=== PATIENT | female | born 1945 | race Caucasian/White ===

== ENCOUNTER 2020-06-29 09:51 | Day surgery (SDC) | payer OTHER ==
[2020-06-23 14:19] LABS: Absolute Lymphocytes (CBC) 2.7 K/uL (0.7-4.9); Basophils % 0.7 % (0-1.3); Hematocrit 37.6 % (36.0-45.0); Lymphocytes % 35.9 % (15.3-44.8); RBC Red Blood Cell Count 3.91 M/uL (3.86-4.86)
[2020-06-23 14:41] LABS: Urine Appearance CLOUDY; Urine Bilirubin NEGATIVE (NEG); Urine Color YELLOW; Urine Glucose NEGATIVE (NEG); Urine Specific Gravity 1.015 (1.005-1.030)
[2020-06-23 14:42] LABS: Urine Blood NEGATIVE (NEG); Urine Protein NEGATIVE (NEG); Urine Urobilinogen 0.2 mg/dL (0.2-1.0); Urine pH 7.5 (5.0-7.0)
[2020-06-23 14:46] LABS: Potassium 3.9 mmol/L (3.5-5.1)
[2020-06-23 15:34] LABS: Urine Microscopic Reflex ORDER UMIC
[2020-06-23 15:55] LABS: Urine Amorphous Sediment 4+ /HPF (NONE SEEN); Urine Bacteria <20 /HPF (<20); Urine RBC <5 /HPF (NONE SEEN)
[2020-06-23 17:27] LABS: Protime INR 0.91
[2020-06-29] MEDS ORDERED: Ringers Lactate 1,000 ML IV ONE ×3 (11:58→16:32)
[2020-06-29] MEDS ORDERED: MIDAZOLAM HCL 2 MG/2 ML INJ ONE (12:00)
[2020-06-29] MEDS ORDERED: FENTANYL CITR 100 MCG/2 ML ONE (12:00)
[2020-06-29] MEDS ORDERED: LIDOCAINE 2% MPF 5 ML VIAL ONE (12:00)
[2020-06-29] MEDS ORDERED: ROCURONIUM 50 MG/5 ML VIAL IV ONE (12:00)
[2020-06-29] MEDS ORDERED: dexAMETHasone 10 MG/ML VIAL ONE (12:00)
[2020-06-29] MEDS ORDERED: propofoL 200 MG/20 ML VIAL IV ONE (12:00)
[2020-06-29] MEDS: CEFAZOLIN/SWI 2gm 2 GM/20 ML SYR ONE ×2 (12:01→13:55)
[2020-06-29] MEDS ORDERED: NA CHLORIDE 0.9% 100 ML IV ONE (13:43)
[2020-06-29] MEDS ORDERED: CEFAZOLIN SODIUM 1 GM/VIAL ONE (13:43)
[2020-06-29] MEDS ORDERED: VASOPRESSIN 20 UNIT/ML VIAL ONE (13:43)
[2020-06-29] MEDS ORDERED: EPHEDRINE SULF 50 MG/ML VIAL ONE (14:45)
[2020-06-29] MEDS ORDERED: KETOROLAC 30 MG/ML INJ ONE (16:27)
[2020-06-29 17:43] VITALS: BP 133/65; TEMP 96.9; O2SAT 96
[2020-06-29] MEDS ORDERED: ONDANSETRON 4 MG/2 ML VIAL ONE (17:51)
[2020-06-29] MEDS ORDERED: IBUPROFEN 200 MG TAB PO ONE (18:09)
[2020-06-29] MEDS ORDERED: IBUPROFEN 400 MG TAB ONE (18:09)
--- NOTE | 2020-06-29 20:01 | OP ---
Date of Procedure: 06/29/2020 Surgeon: Liyah Brian MD Preoperative Diagnosis: Incomplete uterovaginal prolapse, stress urinary incontinence. Postoperative Diagnosis: Incomplete uterovaginal prolapse, stress urinary incontinence, distal poste rior wall and posterior enterocele noted on intraoperative examination. Procedures Performed: 1.LeFort partial colpocleisis. 2.Posterior enterocele and posterior wall distal defect repair site-specific, mid urethral sling (tr ansobturator [id number]), cystoscopy. Anesthesia: General. Specimens: No specimens. Complications: None. Drains: Basilio catheter. The patient's POP-Q is as follows; 0, +1, +5, 4 cm moderate 8, 0, +3 and +5. Closure was performed. The colpocleisis was performed creating side channels for the anterior and posterior wall, the entir e anterior wall, the proximal 2/3 of the posterior wall. The posterior defect in the distal 1/3 was repaired primarily after closing the posterior enterocele defect with 2-0 Vicryl sutures. The perine al body appeared to be fairly well supported. So, the distal part of the posterior wall was sutured to the perineal body without separate incision on the perineum. Sling was performed without any problems. Cystoscopy showed normal ureteric jets from both ureteric orifices. No evidence of any foreign body or trauma to the bladder. Indications: The patient is a 74-year-old female who presented with vaginal bulge symptoms. She was evaluated for management with a pessary. After understanding the maintenance and the insertion and removal procedures and long-term management in this fashion, the patient desired to proceed with a chaney rgical repair. We discussed about carefully the differences and the benefits and risks of both proce dures, closure compared with the reconstruction. Discussed about laparoscopic and vaginal reconstruc tive surgery. The patient was sure after discussing with her that there was no vaginal inter course in their future and was very comfortable proceeding with a vaginal closure procedure. After a ll this was explained and consent was obtained, she was then brought to the OR. 2 g of Ancef were gi raphael preop. She got a cardiology clearance before the surgery. All the postop care was discussed wit h the patient and her . Description Of Procedure: After informed consent was verified again this morning, she was taken back to the OR, placed in supine fashion on operating table. After anesthesia was given, she was placed in a dorsal lithotomy position using Kenan stirrups. Pelvic exam was performed. POP-Q is as above. Lower abdomen, vulva, vagina, and perineum were prepped and draped in a sterile fashion. Basilio was placed to drain the bladder and retracted superiorly. The cervix was grasped with 2 Allis clamps on the anterior and posterior lips. Then, the evaluation was performed for the defect. This appeared t o be a larger and more significant apical defect followed by a posterior compartment defect more than an anterior compartment defect, so it was appropriate to perform the colpocleisis as planned compara ble to her consent and then a posterior defect repair. Markings were made in the anterior and posterior compartments to match up in order for me to perform the colpocleisis. Then, the vaginal epithelium under the epithelium injected with dilute vasopressin . Then the vaginal epithelium was removed in the anterior compartment on the anterior wall. Then di d the same thing in the posterior wall with the help of the scalpel. Once both the compartments were nicely peeled off and the underlying fascia connective tissue was all well exposed, then 2-0 Vicryl suture was taken to create lateral channels. Started on the left lateral angle at the cervix and thi s was carried in a continuous running fashion imbricating the vaginal epithelium creating a channel a t the level of the cervix and continuing into the right lateral wall. Once this channel was complete , then the channel was completed from the left lateral aspect to the distal left wall with a 2-0 Vicr yl suture. Then, 2-0 Vicryl sutures were placed in 2 rows to appose the anterior and posterior conne ctive tissue in the middle. Once all this was brought together, the closure of the colpocleisis was done from anterior to posterior aspect in a transverse plane with a continuous running 2-0 [address] ure. Once this was closed completely, there was excellent channels created. The entire uterus and t he defect was well reduced and there was at least 3 cm of the vagina left. So this was mostly compos ed of the posterior enterocele and the posterior wall defect. The perineal body appeared to be intac t, however, the distal posterior wall appeared to have detached from the perineal body. So, proceede d to make a mily-shaped incision after injecting with dilute vasopressin in the posterior wall and at the introitus on the lateral aspects of the hymen. Once all this was injected with dilute vasopr essin and infiltrated, then a mily-shaped incision was made on the skin with the help of scalpel a nd the skin was peeled off and the vaginal epithelium was peeled off exposing the underlying connecti ve tissue and loose areolar tissue. Once this defect was dissected past the closure of the above inc ision, then the posterior enterocele was closed with the help of 2-0 Vicryl. Then posterior wall was reconstructed with the help of a 2-0 Vicryl in a continuous running fashion and this was connected t o the perineal body. Stitch was run back up and not placed in the middle of the posterior wall. The n vaginal epithelium was trimmed and it was closed with the help of a continuous running 2-0 Vicryl s uture all the way to the distal aspect. There was excellent closure. Good perineal body support at this time without too much narrowing at the vestibule. Anteriorly, the mid urethral area was picked up with 2 Allis clamps, infiltrated with dilute vasopres sin. Incision 1 cm was made in the mid urethral area and dissection was carried into the obturator s pace on ipsilateral side hugging the inferior pubic ramus and once the track was created, an obturato r membrane was perforated on the right side. Similar dissection was performed on the left side. The n, the sling was opened up. The wing guide was placed on the right side. Then, the spike was passed hugging the inferior pubic ramus and exiting at a 0.2 cm lateral to the groin fold 1 cm above the le saadia of the transverse incision and this line dropped at the level of the external meatus. Once the p lastic sheath was pulled out, mesh and sheaths were held with a Niurka clamp. Similar pass on the opp osite side was done without any problems. Then, mesh was tensioned in the mid urethral area with the Metzenbaum scissors. The sheaths were pulled out. Mesh was trimmed flushed with the skin and after removing the Erin, the position appeared to be optimal. This was irrigated with antibiotic solution . Then, the closure was performed with the help of a 3-0 Vicryl in a continuous running fashion. Fo gopal was removed. Cystoscopy with 17-Maldivian sheath, 30-degree lens, normal saline was performed. Bot h ureteric orifices were well visualized. Strong jets of urine were seen. No evidence of any trauma in the bladder. Rest of the bladder unremarkable without any tumors. The base of the bladder myrna ne area above the trigone dome and lateral badillo were all completely visualized. Scope was removed. Bladder was drained and Basilio was replaced. Rectal exam was performed. No evidence of any trauma h ere. The patient was recovered from anesthesia. Instrument, needle, and sponge counts were correct at the end of the case. Basilio was left in place. Plan is to discharge the patient home today with instruc tions for Basilio care. She will remove her catheter at 6 a.m. on Sunday and will be following up for a voiding trial at the office at 8:30. No pain. Prescriptions have been given. Tylenol and ibuprof en will be given after optimal control of pain here before discharge. Instruction sheet provided and all instructions to call were also clarified with the . She will have a 1 week postop appointment with me. Regular diet. No activity restrictions other sacha n limit of 10 pounds weight for about 6 weeks. PABLO/FLORESITA Voice ID: [id number] Report ID: [id number]
== END 2020-06-29 18:32 | disposition home or self-care (01) ==
LOC: PRE 09:51
PROVIDERS: ATTEND Obstetrics & Gynecology
PROC: 0TSD0ZZ Reposition Urethra, Open Approach (ICD-10-PCS; 2020-06-29)
PROC: 0ULG7ZZ Occlusion of Vagina, Via Natural or Artificial Opening (ICD-10-PCS; principal; 2020-06-29 11:30)
DX: N95.0 Postmenopausal bleeding (principal); N81.2 Incomplete uterovaginal prolapse; N95.2 Postmenopausal atrophic vaginitis; I10 Essential (primary) hypertension; Z20.822 Contact with and (suspected) exposure to COVID-19
CPT/HCPCS: 85025; 80048; 36415; 85610; 85730; 57120; 57288; U0003; J2704; J2250; J3010; J1100; J0690 ×2; J7120 ×3; J2405; 81003; 81015